=== PATIENT | male | born 1965 | race Two or more races ===

== ENCOUNTER 2021-04-02 09:02 | Emergency (ER) | payer OTHER ==
[~2021-04-02] VITALS: Ht 190.5 cm; Wt 133.8 kg
[2021-04-02 10:18] LABS: Basophils # (auto) 0 10 ^3/uL (0-0.2); Eosinophils # (auto) 0 10 ^3/uL (0-0.8); Monocytes # (auto) 0.3 10 ^3/uL (0-1.3)
[2021-04-02 10:31] LABS: Basophils % (auto) 0.6 % (0.0-2.0); Hemoglobin 17.6 g/dL (13.5-17.5); Lymphocytes # (auto) 0.4 10 ^3/uL (0.4-5.4); Lymphocytes % (auto) 18.1 % (10.0-50.0); Mean Corpuscular Hemoglobin 30.7 pg (28.0-32.0); Mean Corpuscular Hgb Conc. 33.8 g/dL (32.0-36.0); Mean Corpuscular Volume 90.7 fL (80.0-100.0); Neutrophils # (auto) 1.3 10 ^3/uL (1.6-8.6); Neutrophils % (auto) 66.3 % (37.0-80.0); Nucleated Red Blood Cells % 0.3 %; Red Blood Cells 5.73 10^6/uL (4.5-5.90); Red Cell Distribution Width 14.1 % (11.8-14.3)
[2021-04-02 10:38] LABS: Albumin 2.9 g/dL (3.4-5.0); Anion Gap 9 (5-15); Blood Urea Nitrogen 21 mg/dL (7-18); Calcium 8.3 mg/dL (8.5-10.1); Carbon Dioxide 23 mmol/L (21-32); Chloride 103 mmol/L (98-107); Glucose 104 mg/dL (74-106); Potassium 3.9 mmol/L (3.5-5.1); Sodium 135 mmol/L (136-145)
[2021-04-02 10:43] LABS: Alanine Aminotransferase 101 U/L (16-61); Alkaline Phosphatase 62 U/L (45-117); Aspartate Aminotransferase 125 U/L (15-37); BUN/Creatinine Ratio 17.9; Bilirubin, Total 0.5 mg/dL (0.2-1.0); GFR African American 83 mL/min; GFR Non-African American 68 mL/min; Total Protein 7.5 g/dL (6.4-8.2)
[2021-04-02] MEDS ORDERED: IBUPROFEN 600 MG TAB PO ONE (11:30)
[2021-04-02] MEDS ORDERED: IOHEXOL 350 MG/ML 100ML IJ ONE (13:44)
[2021-04-02] MEDS ORDERED: DexAMETHasone SOD PHOS 10MG/1ML VIAL INJ IV ONE (15:00)
[2021-04-02] MEDS ORDERED: ASCORBIC ACID 500 MG TAB PO ONE (15:00)
[2021-04-02] MEDS ORDERED: ZINC SULFATE 220mg CAP or TAB PO ONE (15:00)
[2021-04-02] MEDS ORDERED: AZITHROMYCIN 500MG/ 250ML 250 ML IV ONE (15:00)
[2021-04-02] MEDS ORDERED: CHOLECALCIFEROL (VITD3) 2,000 UNIT CAP/TAB PO ONE (15:00)
[2021-04-02] MEDS ORDERED: cefTRIAXone 1GM/50ML D5W 50 ML IV ONE (15:00)
[2021-04-02] MEDS ORDERED: hydrOXYchloroQUINE SULFATE 200 MG TAB PO ONE (15:00)
[2021-04-02] MEDS ORDERED: IPRATROPIUM BROM 0.5 MG/2.5ML INH SOL NEB ONE (20:30)
[2021-04-02] MEDS ORDERED: ALBUTEROL SULF 2.5 MG/0.5ML(0.5%) NEB SOLN NEB ONE (20:30)
[2021-04-02 20:36] VITALS: BP 141/77
== END 2021-04-02 21:07 | disposition short-term general hospital (02) ==
LOC: ER 09:02
DX: U07.1 COVID-19 (principal); J12.82 Pneumonia due to coronavirus disease 2019; R79.1 Abnormal coagulation profile; R79.0 Abnormal level of blood mineral; E46 Unspecified protein-calorie malnutrition; D70.9 Neutropenia, unspecified; F17.290 Nicotine dependence, other tobacco product, uncomplicated
CPT/HCPCS: 36415; 71045; 71275; 80053; 82728; 83605; 83880; 84443; 84484; 85025; 85379; 87040; 87426; 93005; 94640; 96365; 96366; 96368; 96375; 99285; J0456; J0696; J1100; J7644; Q9967